=== PATIENT | female | born 1975 | race Two or more races ===

== ENCOUNTER 2021-04-09 03:57 | Emergency (ER) | payer BC, OTHER ==
[~2021-04-09] VITALS: Ht 167.6 cm; Wt 74.8 kg
[2021-04-09 10:05] VITALS: BP 116/54
[2021-04-09] MEDS ORDERED: PROM1SOL4 PO (10:15)
[2021-04-09] MEDS ORDERED: AZIT500T66 PO (10:15)
== END 2021-04-09 10:41 | disposition home or self-care (01) ==
LOC: EDUNIT# 03:57 → EDBD 03:57 → ER 03:57
DX: J20.9 Acute bronchitis, unspecified (principal); J44.9 Chronic obstructive pulmonary disease, unspecified
CPT/HCPCS: 71046